=== PATIENT | female | born 1950 | race Caucasian/White ===

== ENCOUNTER 2020-11-25 11:49 | Outpatient (REF) | payer OTHER, SELFPAY ==
--- NOTE | ~2020-11-25 | XR_ITS ---
EXAMINATION: XR CHEST CLINICAL INFORMATION: Asthma COMPARISON: None TECHNIQUE: 2 views of the chest were obtained. FINDINGS: The heart does not appear enlarged. There is increased soft tissue at the right cardiophrenic angle. This is stable compared to previous chest x-ray from 2008. This may represent prominent epicardial fat, pericardial cyst or less likely diaphragmatic hernia. Hilar and mediastinal contours are otherwise unremarkable. There is biapical pleural thickening. The lungs are otherwise clear. There is no pleural effusion or pneumothorax. There are degenerative changes of the spine. XR/XR chest 2V IMPRESSION: No evidence for acute disease in the chest.
[2020-11-25 12:16] LABS: MANUAL DIFF FLAG NO
[2020-11-25 12:58] LABS: Basophils Absolute Auto 0.1 X10*3/uL (0.0-0.2); Basophils Percent Auto 0.7 % (0-2); Eosinophils Absolute Auto 0.4 X10*3/uL (0.0-0.4); Eosinophils Percent Auto 5.3 % (0-4); Hemoglobin 13.7 g/dl (12.0-16.0); Imm Gran Abs Auto 0.02 X10*3/uL (0.00-0.03); Imm Gran Pct Auto 0.3 % (0.0-0.4); Lymphocytes Absolute Auto 2.2 X10*3/uL (1.2-4.9); Lymphocytes Percent Auto 31.3 % (20-40); Mean Corpuscular HGB Conc 33.4 g/dl (31.0-35.0); Mean Corpuscular Volume 95.8 fL (80-98); Mean Platelet Volume 9.8 fL (9.4-12.3); Monocytes Absolute Auto 0.5 X10*3/uL (0.1-1.2); Neutrophils Absolute Auto 3.9 X10*3/uL (2.0-8.3); Neutrophils Percent Auto 55.4 % (45-73); Platelet Count 263 X10*3/uL (160-400); Red Blood Count 4.28 X10*6/uL (4.20-5.50); Red Cell Distribution Width 12.8 % (11.0-16.0)
[2020-11-25 13:22] LABS: Alanine Aminotransferase 28 U/L (0-31); Albumin Level 4.2 g/dL (3.5-5.0); Alkaline Phosphatase 109 U/L (39-117); Anion Gap 14 (12-20); Aspartate Amino Transferase 26 U/L (5-31); Bilirubin Total 0.6 mg/dL (0.0-1.0); Blood Urea Nitrogen 14 mg/dL (9-16); Calcium 9.5 mg/dL (8.4-10.2); Carbon Dioxide 25 mmol/L (22-29); Chloride 108 mmol/L (96-108); Cholesterol 350 mg/dL; Estimated Glomerular Filt Rate > 60; Glucose Random 98 mg/dL (60-115); HDL Cholesterol 97 mg/dL; LDL Cholesterol Calculated 235 mg/dl; Potassium 4.6 mmol/L (3.3-5.1); Sodium 142 mmol/L (135-145); Total Protein 6.8 g/dL (6.5-8.0); Triglycerides 90 mg/dL
== END 2020-11-25 11:50 | disposition home or self-care (01) ==
LOC: HO.XRAY 11:49
PROVIDERS: PCP Internal Medicine; Visit Provider Internal Medicine
DX: J45.42 Moderate persistent asthma with status asthmaticus (principal); I10 Essential (primary) hypertension; H02.63 Xanthelasma of right eye, unspecified eyelid
CPT/HCPCS: 36415; 71046; 80053; 80061; 85025

== ENCOUNTER 2021-02-24 10:47 | Outpatient (REF) | payer OTHER, SELFPAY ==
--- NOTE | ~2021-02-24 | XR_ITS ---
EXAMINATION: XR CHEST CLINICAL INFORMATION: Asthma COMPARISON: Previous chest x-rays most recent November 2020 TECHNIQUE: 2 views of the chest were obtained. FINDINGS: The cardiac and mediastinal contours are stable. The lungs are clear. There is no pleural effusion or pneumothorax. There is biapical pleural thickening that appears unchanged. Bony structures are unremarkable. XR/XR chest 2V IMPRESSION: No evidence for acute disease in the chest.
== END 2021-02-24 10:48 | disposition home or self-care (01) ==
LOC: HO.XRAY 10:47
PROVIDERS: PCP Internal Medicine; Visit Provider Internal Medicine
DX: J45.42 Moderate persistent asthma with status asthmaticus (principal)
CPT/HCPCS: 71046

== ENCOUNTER 2021-03-03 15:50 | Outpatient (REF) | payer OTHER, SELFPAY ==
[2021-03-03 16:15] LABS: Alanine Aminotransferase 36 U/L (0-31); Albumin Level 4.1 g/dL (3.5-5.0); Alkaline Phosphatase 133 U/L (39-117); Aspartate Amino Transferase 21 U/L (5-31); Bilirubin Direct 0.2 mg/dL (0.0-0.5); Bilirubin Total 0.6 mg/dL (0.0-1.0); Cholesterol 220 mg/dL; HDL Cholesterol 76 mg/dL; LDL Cholesterol Calculated 117 mg/dl; Total Protein 6.7 g/dL (6.5-8.0); Triglycerides 137 mg/dL
[2021-03-03 18:01] LABS: Reflex LDLD? No
== END 2021-03-03 15:51 | disposition home or self-care (01) ==
LOC: HO.LNP 15:50
PROVIDERS: Visit Provider Internal Medicine
DX: E78.00 Pure hypercholesterolemia, unspecified (principal)
CPT/HCPCS: 80061; 80076

== ENCOUNTER 2022-01-25 11:09 | Outpatient (REF) | payer OTHER, SELFPAY ==
[2022-01-25 11:12] LABS: MANUAL DIFF FLAG NO
[2022-01-25 11:51] LABS: Appearance Urine Clear; Color Urine Yellow; Glucose Urine UA Negative (Negative); Leukocyte Esterase Urine Moderate (2+) (Negative); Nitrite Urine Negative (Negative); PH 6.5 (5.0-9.0); UMIC TRIGGER UA YES; Urine Blood Negative (Negative); Urine Ketones Negative (Negative); Urine Protein Trace mg/dL (Neg-Trace)
[2022-01-25 11:55] LABS: Basophils Absolute Auto 0.1 X10*3/uL (0.0-0.2); Basophils Percent Auto 0.5 % (0-2); Eosinophils Absolute Auto 0.4 X10*3/uL (0.0-0.4); Eosinophils Percent Auto 4.4 % (0-4); Hematocrit 38.5 % (37.0-47.0); Hemoglobin 12.7 g/dl (12.0-16.0); Imm Gran Abs Auto 0.03 X10*3/uL (0.00-0.03); Imm Gran Pct Auto 0.3 % (0.0-0.4); Lymphocytes Percent Auto 41.1 % (20-40); Mean Corpuscular Hemoglobin 31.9 pg (27.0-33.0); Mean Corpuscular Volume 96.7 fL (80.0-98.0); Mean Platelet Volume 10.3 fL (9.4-12.3); Monocytes Absolute Auto 0.7 X10*3/uL (0.1-1.2); Monocytes Percent Auto 7.3 % (2-11); Neutrophils Absolute Auto 4.6 x10*3/uL (2.0-8.3); Neutrophils Percent Auto 46.4 % (45-73); Platelet Count 292 X10*3/uL (160-400); Red Blood Count 3.98 X10*6/uL (4.20-5.50); Red Cell Distribution Width 12.8 % (11.0-16.0); White Blood Count 9.8 X10*3/uL (4.8-10.8)
[2022-01-25 11:58] LABS: Bacteria Urine None Seen (None Seen); Hyaline Casts Urine 0-2 /LPF (0-2); RBC Urine 0-2 /HPF (0-2); WBC Urine 21-50 /HPF (0-5)
[2022-01-25 12:28] LABS: Alanine Aminotransferase 28 U/L (0-31); Albumin Level 4.2 g/dL (3.5-5.0); Alkaline Phosphatase 96 U/L (39-117); Anion Gap 11 (12-20); Aspartate Amino Transferase 27 U/L (5-31); Bilirubin Total 0.6 mg/dL (0.0-1.0); Blood Urea Nitrogen 21 mg/dL (9-16); Calcium 9.9 mg/dL (8.4-10.2); Carbon Dioxide 28 mmol/L (22-29); Chloride 108 mmol/L (96-108); Cholesterol 209 mg/dL; Estimated Glomerular Filt Rate > 60; Glucose Fasting 100 mg/dL (60-99); HDL Cholesterol 86 mg/dL; LDL Cholesterol Calculated 106 mg/dl; Potassium 4.3 mmol/L (3.3-5.1); Sodium 143 mmol/L (135-145); Total Protein 6.5 g/dL (6.5-8.0); Triglycerides 89 mg/dL
== END 2022-01-25 11:10 | disposition home or self-care (01) ==
LOC: HO.LNP 11:09
PROVIDERS: Visit Provider Internal Medicine
DX: Z00.00 Encounter for general adult medical examination without abnormal findings (principal); I10 Essential (primary) hypertension; E78.00 Pure hypercholesterolemia, unspecified
CPT/HCPCS: 80053; 80061; 81001; 85025

== ENCOUNTER 2023-03-14 11:46 | Outpatient (AMB) | payer MEDICARE, SELFPAY ==
--- OUTSIDE RECORDS SUMMARY | 2023-03-14 11:48 | XMS_ITS | Patient Health Record ---
Author Name Unknown Organization Jeremias Vaca MD Address [address] [place] [address] [phone] Care Team Providers Care Potato Spotter Name Role Phone Jeremias Vaca Primary Care Provider [phone] ALLERGIES Allergen (clinical drug ingredient) Drug/Non Drug Allergy documented on EMR Reaction Allergy Type Onset Date Status Penicillin hives Drug Allergy Active REASON FOR REFERRAL No Information MEDICATIONS Medication SIG (Take, Route, Frequency, Duration) Notes Start Date End Date Status Paxlovid (300/100) 20 x 150 MG & 10 x 100MG as directed 3 tabs Orally twice a day for 5 days 01/03/2023 Active Albuterol Sulfate HFA 108 (90 Base) MCG/ACT INHALE PUFF EVERY 4 HOURS NEEDED FOR 30 DAYS for 30 Active Symbicort 160-4.5 MCG/ACT USE 2 INHALATI ONS BY MOUTH TWICE DAILY for 90 Active Valsartan-hydroCHLOROthiazi de 320-25 MG TAKE 1 TABLET BY MOUTH ONCE DAILY for 90 Active Atorvastatin Calcium 40 MG TAKE 1 TABLET BY MOUTH ONCE DAILY for 90 Active IMMUNIZATIONS Vaccine Route Administration Date Status Comme nts SARS-COV-2 Moderna Unknown 04/25/2020 Administered SARS-COV-2 Moderna Unknown 05/24/2020 Administered Influenza High Dose IM Intramuscular 12/04/2020 Administer ed SARS-COV-2 Moderna Unknown 12/19/2020 [facility] SARS-COV-2 Moderna Unknown 11/27/2021 [facility] Influenza High Dose Unknown 11/26/2021 [facility] Fluarix Quadrivalent Unknown 02/09/2023 [facility] SOCIAL HISTORY Tobacco Use: Social History Observation Description Date Details (start date - stop date) Never Smoker NA - NA Sex Assigned At : Social History Observation Description Sex Assigned At Unknown Tobacco Use/Smoking Question Answer Notes Patient is a nonsmoker Additional Findings: Tobacco Non-User Cu rrent non-smoker, currently using no form of tobacco Alcohol Screen Question Answer Notes Did you have a drink contain ing alcohol in the past year? Yes How often did you have a dri nk containing alcohol in the past year? 4 or more times a week (4 points) How many drinks did you have on a typical day when you were drinking in the past year? 1 or 2 drinks (0 point) How often did you have 6 or more drinks on one occasion in the past year? 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) Active confirmed [id number] Problem Hypercholesterolemia (E78.00) Active confirmed 05995690 VITAL SIGNS Height 63.5 in 01/03/2023 weight at home is 190 BP not taken today no temp Encounters Encounter Location Date Provider Diagnosis Jeremias Vaca MD [address] [place] [id number] 03/18/2022 Jeremias Vaca MD [address] [place] [address] Drive [address] [place] [id number] 01/03/2023 Jeremias Vaca COVID-19 U07.1 ASSESSMENTS Encounter Date Diagnosis Assessment Notes Treatment Notes Treatment Clinical Notes 01/03/2023 COVID-19 (ICD-10 - U07.1) she is going to wait to see if she doesn't keep getting better to take it. knows that she needs to hold atorvastatin if she takes it. to wait to get the next shot for 2 months PLAN OF TREATMENT Pending Test Test Name Order Date XR CHEST 2 VIEW PA & LAT 11/25/2020 XR CHEST 2 VIEW PA & LAT 02/23/2021 Insurance Providers Payer Name Payer Address Payer Phone Subscriber Number Group Number Insured Name Patient Relationship to Insured Coverage Start Date Coverage End Date [employer] [facility] [address] [facility] [place] [phone] [id number] Doreen Robles Self - patient is the insured
--- NOTE | 2023-03-14 12:17 | MHC.OFFWIV ---
Intake Vital Signs 03/14/23 12:21 Height 5 ft 5 in Weight 198 lb 2 oz BMI 33.0 BP 156/66 H Blood Pressure Location Rt brachial Position Sitting Pulse 84 Pulse Source Pulse Oximeter Temp 97.5 F Temp Source Oral Pulse Oximetry (%) 96 Oxygen Delivery Method Room Air Intake Visit Reasons: EP Sinus pain/pressure [phone] Intake Note: Pt is here today for possible sinus infection, symptoms are runny nose and green mucus Patient Tobacco Use Status: Never used Tobacco Allergies penicillin V Allergy (Unknown, Verified 03/14/23 12:25) hives Penicillin G Potassium in D5W Allergy (Unknown, Uncoded 03/14/23 12:25) Hives Do you need a note to return to daycare/school/sports/work: No HPI HPI Comments History of Present Illness Details Patient presents to the walk in today for complaints of sinus congestion with green discharge for greater than 2 weeks Denies fever, cough, shortness of breath, chest pain, syncope, weakness, headaches, fatigue, ear ache, sore throat Reports she has been suffering with URI symptoms for 2 months off and on. Will get better then worse again For last couple of weeks has been dealing with sinus congestion, thick green mucous when she blows her nose\ History of sinus infection but not in several years PFSH Social History Patient Tobacco Use Status: Never used Tobacco Review of Systems Const All systems reviewed & are unremarkable except as noted in HPI and below Physical Exam Vital Signs: Last Vital Signs Temp 97.5 F 03/14/23 12:21 Pulse 84 03/14/23 12:21 BP 156/66 H 03/14/23 12:21 Pulse Ox 96 03/14/23 12:21 Oxygen Delivery Method Room Air 03/14/23 12:21 BMI result Body Mass Index 33.0 General: awake, alert, oriented. Answers questions appropriately. Fully engaged in examination. Skin: warm, dry, intact HEENT: TMs intact bilaterally, without erythema or exudate. Posterior pharynx without erythema or exudate. Sclera without icterus or injection. Tenderness over Maxillary sinuses bilaterally Cardiac: External chest normal in appearance. Respiratory: LSCTAB. Abdomen: without gross distension. Neurological: Oriented to person, place, time and situation. Thought process intact. Psychiatric: Appropriate mood and affect. Good judgment and insight. Assessment & Plan Assessment & Plan (1) Acute sinus infection: Code(s): J01.90 - Acute sinusitis, unspecified Plan Sinus infection, abx prescribed Doxycycline 100mg po BID X 5 days. take with food Rest, drink plenty of fluids, tylenol or motrin as needed. Follow up with pcp or in clinic for any new or worsening symptoms. Go to ER for shortness of breath, chest pain, palpitations, weakness, dizziness. Medications: New doxycycline hyclate 100 mg PO BID 10 caps 0RF Coding Level of Care Code Est Pt Level 4 (57349) Diagnoses Acute sinus infection J01.90
[2023-03-14 12:21] VITALS: BP 156/66; PULSE 84; TEMP 36.4; O2SAT 96; BMI 33.0
== END 2023-03-14 13:15 | disposition home or self-care (01) ==
PROVIDERS: PCP Internal Medicine; Visit Provider Registered Nurse Emergency
DX: J01.90 Acute sinusitis, unspecified (principal)
CPT/HCPCS: 99213